=== PATIENT | female | born 1990 | race Caucasian/White ===

== ENCOUNTER 2018-01-18 14:07 | Inpatient (IN) | payer MEDICAID, OTHER ==
[~2018-01-18] VITALS: Ht 165.1 cm; Wt 44.5 kg
[~2018-01-18 14:07] MED LIST: CLIN-5 PO; DOL10T PO
[2018-01-18] MEDS ORDERED: aspirin 81mg tab.chew PO ONE (14:35)
[2018-01-18] MEDS ORDERED: normal saline 1000ML IV soln IVB ONE (14:35)
[2018-01-18] MEDS ORDERED: LORazepam 2 mg/ml vial IV ONE (14:45)
[2018-01-18] MEDS ORDERED: ondansetron/PF 4mg/2ml inj IV ONE (14:45)
[2018-01-18] MEDS ORDERED: morphine 4 MG/ML inj SYRINge IV ONE (14:45)
[2018-01-18 16:47] LABS: BASOPHILS % (AUTO) 0.2 % (0-1); EOSINOPHILS % (AUTO) 0.1 % (0-6); HEMATOCRIT 35.1 % (35.0-45.0); HEMOGLOBIN 12.2 g/dl (12.0-16.0); LYMPHOCYTES # (AUTO) 1.4 X10'3 (1.1-4.8); MEAN CORPUSCULAR HEMOGLOBIN 29.3 PG (27.0-31.0); MEAN CORPUSCULAR HGB CONC 34.7 % (33.0-36.5); MEAN CORPUSCULAR VOLUME 84.3 FL (78-98); MEAN PLATELET VOLUME 6.7 FL (7.4-10.4); MONOCYTES # (AUTO) 0.9 X10'3 (0-0.9); MONOCYTES % (AUTO) 7.5 % (2-12); NEUTROPHILS # (AUTO) 9.4 X10'3 (1.8-7.7); NEUTROPHILS % (AUTO) 80.2 % (42-75); PLATELET COUNT 412 X10'3 (140-440); RED BLOOD COUNT 4.16 X10'6 (4.20-5.60); RED CELL DISTRIBUTION WIDTH 15.2 % (11.5-14.5); WHITE BLOOD COUNT 11.7 X10'3 (4.5-11.0)
[2018-01-18 16:58] LABS: INR 1.1 INR; PARTIAL THROMBOPLASTIN TIME 27 SECONDS (22-32); PROTHROMBIN TIME 11.5 SECONDS (9.0-12.0)
[2018-01-18 17:12] LABS: ALANINE AMINOTRANSFERASE 17 U/L (12-78); ALBUMIN 2.9 G/DL (3.4-5.0); ALBUMIN/GLOBULIN RATIO 0.7 (1.1-1.5); ALKALINE PHOSPHATASE 101 IU/L (46-116); ANION GAP 8 (8-16); ASPARTATE AMINO TRANSFERASE 12 U/L (10-37); BILIRUBIN,TOTAL 0.3 MG/DL (0.1-1.0); BLOOD UREA NITROGEN 14 MG/DL (7-18); BUN/CREATININE RATIO 18.4 (6.6-38.0); CALCIUM 7.5 MG/DL (8.5-10.1); CHLORIDE 106 MMOL/L (99-107); CREATININE 0.76 MG/DL (0.40-0.90); GLUCOSE 106 MG/DL (70-104); POTASSIUM 4.3 MMOL/L (3.5-5.1); SODIUM 139 MMOL/L (135-145); TOTAL CARBON DIOXIDE 24.6 MMOL/L (24-32); TOTAL PROTEIN 7.2 G/DL (6.4-8.2); eGFR > 90 ML/MIN
[2018-01-18] MEDS ORDERED: ketorolac tromethamine 15mg/ml inj. IV ONE (19:25)
[2018-01-18] MEDS ORDERED: mag hydrox/Alum hydrox/simeth 30ml oral suspension PO PRN (19:25)
[2018-01-18] MEDS ORDERED: magnesium hydroxide 30ml (MOM) UD suspension PO PRN (19:25)
[2018-01-18] MEDS ORDERED: acetaminophen 325mg tablet PO PRN ×2 (19:25)
[2018-01-18] MEDS ORDERED: ondansetron/PF 4mg/2ml inj IV PRN (19:25)
[2018-01-18 19:34] LABS: CLARITY,URINE Clear (Clear); COLOR,URINE Yellow (Yellow); GLUCOSE, URINE Negative (Neg); KETONES,URINE Negative (Neg); LEUKOCYTE ESTERASE ,URINE Negative (Neg); NITRITES, URINE Negative (Neg); OCCULT BLOOD,URINE Small (Neg); PROTEIN,URINE Negative (Neg); UROBILINOGEN,URINE 0.2 E.U/dL (0.2-1.0)
[2018-01-18 19:35] LABS: URINE HCG NEGATIVE (NEG)
[2018-01-18 19:41] LABS: UA COLLECTION TYPE CLN CATCH MIDSTREAM
[2018-01-18 19:50] LABS: BACTERIA,URINE NONE SEEN /HPF (Neg); RBC,URINE 0-2 /HPF (0-2); SQUAMOUS EPITHELIAL CELL,UR MODERATE /LPF (FEW); WBC,URINE NONE SEEN /HPF (0-4)
[2018-01-18] MEDS: HYDROcodone/acetaminophen 10/325mg tab PO PRN (19:53)
[2018-01-18] MEDS: vancomycin/NS 1 GM ADD-VANTAGE 250 ML IV SCH (20:00)
[2018-01-18] MEDS: normal saline 1000ml 1,000 ML IV SCH (20:46)
[2018-01-18] MEDS ORDERED: temazepam 15mg capsule PO PRN (21:00)
[2018-01-18 21:40] VITALS: BP 101/49
[2018-01-19] VITALS (21 sets, daily range): BP systolic 88–153; BP diastolic 44–90
[2018-01-19] MEDS: HYDROcodone/acetaminophen 10/325mg tab PO PRN ×5 (00:06→21:34)
[2018-01-19] MEDS: normal saline 1000ml 1,000 ML IV SCH ×2 (01:43→13:39)
[2018-01-19] MEDS: vancomycin/NS 1 GM ADD-VANTAGE 250 ML IV SCH ×2 (07:46→20:18)
[2018-01-19] MEDS ORDERED: ringers solution, lacted 1,000 ML IV SCH (08:41)
[2018-01-19] MEDS ORDERED: ondansetron/PF 4mg/2ml inj IV PRN (08:45)
[2018-01-19] MEDS ORDERED: meperidine/PF 50mg/ml syringe IV PRN ×2 (08:45)
[2018-01-19] MEDS ORDERED: morphine 2 MG/ML inj. syringe IV PRN ×2 (08:45)
[2018-01-19] MEDS ORDERED: proCHLORperazine 10 MG/2 ml inj IV PRN (08:45)
[2018-01-19] MEDS ORDERED: sevoflurane 250ml liquid IH ONE (09:21)
[2018-01-19] MEDS ORDERED: fentaNYL/PF 50MCG/1 ML 2ML syringe ONE (09:23)
[2018-01-19] MEDS ORDERED: midazolam 2 mg/2 ml injection ONE (09:26)
[2018-01-19] MEDS ORDERED: LIDOcaine 2% (20mg/ml) 5ml vial ONE (09:26)
[2018-01-19] MEDS ORDERED: propofol inj 20 ML IV ONE (09:26)
[2018-01-19] MEDS ORDERED: BUPIVAcaine/PF 2.5 mg/ml (0.25%) 30ml vial ONE (09:38)
[2018-01-19] MEDS ORDERED: LIDOcaine 1% 30ml vial 30 ML ONE (09:38)
[2018-01-19] MEDS ORDERED: HYDROcodone/acetaminophen 5mg/325mg tablet PO PRN (10:00)
[2018-01-19] MEDS: meperidine/PF 50mg/ml syringe IV PRN ×2 (10:25→10:42)
[2018-01-19 14:07] LABS: BASOPHILS % (AUTO) 0.1 % (0-1); EOSINOPHILS # (AUTO) 0.1 X10'3 (0-0.9); EOSINOPHILS % (AUTO) 1.5 % (0-6); HEMOGLOBIN 10.4 g/dl (12.0-16.0); LYMPHOCYTES # (AUTO) 2.1 X10'3 (1.1-4.8); LYMPHOCYTES % (AUTO) 23.2 % (21-51); MEAN CORPUSCULAR HEMOGLOBIN 29.2 PG (27.0-31.0); MEAN CORPUSCULAR HGB CONC 33.5 % (33.0-36.5); MEAN CORPUSCULAR VOLUME 87.2 FL (78-98); MEAN PLATELET VOLUME 6.9 FL (7.4-10.4); MONOCYTES # (AUTO) 0.6 X10'3 (0-0.9); MONOCYTES % (AUTO) 7.1 % (2-12); NEUTROPHILS # (AUTO) 6.1 X10'3 (1.8-7.7); NEUTROPHILS % (AUTO) 68.1 % (42-75); PLATELET COUNT 344 X10'3 (140-440); RED BLOOD COUNT 3.56 X10'6 (4.20-5.60); RED CELL DISTRIBUTION WIDTH 14.9 % (11.5-14.5); WHITE BLOOD COUNT 8.9 X10'3 (4.5-11.0)
[2018-01-19 14:17] LABS: ALBUMIN 2.3 G/DL (3.4-5.0); ANION GAP 6 (8-16); BLOOD UREA NITROGEN 6 MG/DL (7-18); CALCIUM 7.9 MG/DL (8.5-10.1); CHLORIDE 108 MMOL/L (99-107); CREATININE 0.46 MG/DL (0.40-0.90); GLUCOSE 80 MG/DL (70-104); POTASSIUM 3.9 MMOL/L (3.5-5.1); SODIUM 141 MMOL/L (135-145); TOTAL CARBON DIOXIDE 26.9 MMOL/L (24-32); eGFR > 90 ML/MIN
[2018-01-19] MEDS: ketorolac tromethamine 15mg/ml inj. IV PRN ×2 (15:33→21:35)
[2018-01-19] MEDS ORDERED: NO HOME MEDS (18:15)
[2018-01-19] MEDS: heparin, porcine 5000 units/ml vial SQ SCH (20:00)
[2018-01-20] VITALS: BP 84/46
[2018-01-20] MEDS: normal saline 1000ml 1,000 ML IV SCH ×2 (00:08→12:09)
[2018-01-20] MEDS: HYDROcodone/acetaminophen 10/325mg tab PO PRN ×5 (01:59→23:01)
[2018-01-20] MEDS: ketorolac tromethamine 15mg/ml inj. IV PRN ×3 (04:15→19:56)
[2018-01-20] MEDS ORDERED: VANCOMYCIN LEVEL IV NR (07:30)
[2018-01-20 07:31] VITALS: BP 92/50
[2018-01-20] MEDS: heparin, porcine 5000 units/ml vial SQ SCH ×2 (08:00→20:00)
[2018-01-20] MEDS: vancomycin/NS 1 GM ADD-VANTAGE 250 ML IV SCH (08:20)
[2018-01-20 08:39] LABS: ALBUMIN 2.2 G/DL (3.4-5.0); ANION GAP 10 (8-16); BLOOD UREA NITROGEN 8 MG/DL (7-18); BUN/CREATININE RATIO 17.4 (6.6-38.0); CALCIUM 8.1 MG/DL (8.5-10.1); CHLORIDE 107 MMOL/L (99-107); CREATININE 0.46 MG/DL (0.40-0.90); GLUCOSE 104 MG/DL (70-104); POTASSIUM 3.6 MMOL/L (3.5-5.1); SODIUM 143 MMOL/L (135-145); TOTAL CARBON DIOXIDE 26.4 MMOL/L (24-32); VANCOMYCIN,TROUGH 3.9 UG/ML (6.0-14.0); eGFR > 90 ML/MIN
[2018-01-20 08:46] LABS: BASOPHILS # (AUTO) 0.1 X10'3 (0-0.2); BASOPHILS % (AUTO) 0.9 % (0-1); EOSINOPHILS # (AUTO) 0.1 X10'3 (0-0.9); EOSINOPHILS % (AUTO) 2.4 % (0-6); HEMATOCRIT 31.8 % (35.0-45.0); HEMOGLOBIN 10.9 g/dl (12.0-16.0); LYMPHOCYTES # (AUTO) 1.7 X10'3 (1.1-4.8); LYMPHOCYTES % (AUTO) 29.6 % (21-51); MEAN CORPUSCULAR HEMOGLOBIN 29.6 PG (27.0-31.0); MEAN CORPUSCULAR HGB CONC 34.3 % (33.0-36.5); MEAN CORPUSCULAR VOLUME 86.4 FL (78-98); MEAN PLATELET VOLUME 7.5 FL (7.4-10.4); MONOCYTES # (AUTO) 0.4 X10'3 (0-0.9); MONOCYTES % (AUTO) 7.3 % (2-12); NEUTROPHILS # (AUTO) 3.5 X10'3 (1.8-7.7); NEUTROPHILS % (AUTO) 59.8 % (42-75); PLATELET COUNT 355 X10'3 (140-440); RED BLOOD COUNT 3.68 X10'6 (4.20-5.60); RED CELL DISTRIBUTION WIDTH 14.4 % (11.5-14.5); WHITE BLOOD COUNT 5.9 X10'3 (4.5-11.0)
[2018-01-20 12:00] VITALS: BP 95/56
[2018-01-20] MEDS: vancomycin inj 1,250 MG in normal saline 250ml IV soln 250 ML IV SCH (15:43)
[2018-01-20] MEDS: lactobacillus rhamnosus 10,000 MMU CELLS/CAPSULE PO SCH (19:58)
[2018-01-20 20:00] VITALS: BP 94/58
[2018-01-20] MEDS: piperacillin/tazo 3.375gm/50ml 50 ML IV SCH (20:07)
[2018-01-21] VITALS: BP 104/60
[2018-01-21] MEDS: piperacillin/tazo 3.375gm/50ml 50 ML IV SCH ×4 (00:44→23:24)
[2018-01-21] MEDS: vancomycin inj 1,250 MG in normal saline 250ml IV soln 250 ML IV SCH ×3 (01:31→17:20)
[2018-01-21] MEDS: normal saline 1000ml 1,000 ML IV SCH ×2 (01:31→07:16)
[2018-01-21] MEDS: ketorolac tromethamine 15mg/ml inj. IV PRN ×4 (04:10→23:22)
[2018-01-21 05:11] LABS: BASOPHILS # (AUTO) 0.1 X10'3 (0-0.2); BASOPHILS % (AUTO) 1.1 % (0-1); EOSINOPHILS # (AUTO) 0.2 X10'3 (0-0.9); EOSINOPHILS % (AUTO) 3.2 % (0-6); HEMOGLOBIN 11.2 g/dl (12.0-16.0); LYMPHOCYTES # (AUTO) 2.4 X10'3 (1.1-4.8); LYMPHOCYTES % (AUTO) 32.5 % (21-51); MEAN CORPUSCULAR HEMOGLOBIN 29.1 PG (27.0-31.0); MEAN CORPUSCULAR VOLUME 85.4 FL (78-98); MEAN PLATELET VOLUME 7.4 FL (7.4-10.4); MONOCYTES # (AUTO) 0.5 X10'3 (0-0.9); MONOCYTES % (AUTO) 6.3 % (2-12); NEUTROPHILS # (AUTO) 4.2 X10'3 (1.8-7.7); NEUTROPHILS % (AUTO) 56.9 % (42-75); PLATELET COUNT 389 X10'3 (140-440); RED BLOOD COUNT 3.86 X10'6 (4.20-5.60); RED CELL DISTRIBUTION WIDTH 14.8 % (11.5-14.5); WHITE BLOOD COUNT 7.3 X10'3 (4.5-11.0)
[2018-01-21 05:34] LABS: ALBUMIN 2.4 G/DL (3.4-5.0); ANION GAP 10 (8-16); BLOOD UREA NITROGEN 16 MG/DL (7-18); BUN/CREATININE RATIO 23.5 (6.6-38.0); CHLORIDE 108 MMOL/L (99-107); CREATININE 0.68 MG/DL (0.40-0.90); GLUCOSE 93 MG/DL (70-104); POTASSIUM 3.8 MMOL/L (3.5-5.1); SODIUM 144 MMOL/L (135-145); TOTAL CARBON DIOXIDE 26.5 MMOL/L (24-32); eGFR > 90 ML/MIN
[2018-01-21] MEDS: heparin, porcine 5000 units/ml vial SQ SCH ×2 (07:20→19:47)
[2018-01-21] MEDS: pantoprazole 40mg Tablet.DR PO SCH (07:20)
[2018-01-21] MEDS: lactobacillus rhamnosus 10,000 MMU CELLS/CAPSULE PO SCH ×2 (07:20→19:47)
[2018-01-21] MEDS: HYDROcodone/acetaminophen 10/325mg tab PO PRN ×3 (07:26→19:47)
[2018-01-21 07:35] VITALS: BP 102/58
[2018-01-21 11:40] VITALS: BP 95/51
[2018-01-21] MEDS ORDERED: VANCOMYCIN LEVEL IV NR (15:30)
[2018-01-21 20:08] VITALS: BP 101/67
[2018-01-21] MEDS: benzocaine (Anbesol) 12ml bottle MM PRN (20:19)
[2018-01-22] VITALS: BP 96/59
[2018-01-22] MEDS: vancomycin inj 1,250 MG in normal saline 250ml IV soln 250 ML IV SCH ×3 (00:51→17:22)
[2018-01-22] MEDS: HYDROcodone/acetaminophen 10/325mg tab PO PRN ×4 (00:52→21:24)
[2018-01-22] MEDS: benzocaine (Anbesol) 12ml bottle MM PRN ×2 (03:12→07:35)
[2018-01-22 05:29] LABS: BASOPHILS # (AUTO) 0.1 X10'3 (0-0.2); EOSINOPHILS # (AUTO) 0.3 X10'3 (0-0.9); EOSINOPHILS % (AUTO) 3.5 % (0-6); HEMATOCRIT 31.6 % (35.0-45.0); HEMOGLOBIN 10.5 g/dl (12.0-16.0); LYMPHOCYTES # (AUTO) 2.5 X10'3 (1.1-4.8); MEAN CORPUSCULAR HEMOGLOBIN 28.8 PG (27.0-31.0); MEAN CORPUSCULAR HGB CONC 33.1 % (33.0-36.5); MEAN CORPUSCULAR VOLUME 86.8 FL (78-98); MEAN PLATELET VOLUME 7.5 FL (7.4-10.4); MONOCYTES # (AUTO) 0.5 X10'3 (0-0.9); NEUTROPHILS # (AUTO) 5.1 X10'3 (1.8-7.7); NEUTROPHILS % (AUTO) 60.5 % (42-75); PLATELET COUNT 384 X10'3 (140-440); RED BLOOD COUNT 3.63 X10'6 (4.20-5.60); RED CELL DISTRIBUTION WIDTH 14.1 % (11.5-14.5); WHITE BLOOD COUNT 8.5 X10'3 (4.5-11.0)
[2018-01-22 05:39] LABS: ALBUMIN 2.3 G/DL (3.4-5.0); ANION GAP 8 (8-16); BLOOD UREA NITROGEN 16 MG/DL (7-18); BUN/CREATININE RATIO 25.8 (6.6-38.0); CALCIUM 8.3 MG/DL (8.5-10.1); CHLORIDE 110 MMOL/L (99-107); CREATININE 0.62 MG/DL (0.40-0.90); GLUCOSE 97 MG/DL (70-104); POTASSIUM 3.5 MMOL/L (3.5-5.1); SODIUM 147 MMOL/L (135-145); TOTAL CARBON DIOXIDE 29.3 MMOL/L (24-32); eGFR > 90 ML/MIN
[2018-01-22] MEDS ORDERED: pantoprazole 40 MG vial IV ONE (06:10)
[2018-01-22 07:08] VITALS: BP 96/57
[2018-01-22] MEDS: heparin, porcine 5000 units/ml vial SQ SCH ×2 (07:23→20:00)
[2018-01-22] MEDS: lactobacillus rhamnosus 10,000 MMU CELLS/CAPSULE PO SCH ×2 (07:25→21:22)
[2018-01-22] MEDS: piperacillin/tazo 3.375gm/50ml 50 ML IV SCH ×3 (07:26→23:56)
[2018-01-22] MEDS: ketorolac tromethamine 15mg/ml inj. IV PRN ×3 (07:26→23:56)
[2018-01-22] MEDS: pantoprazole 40mg Tablet.DR PO SCH (07:26)
[2018-01-22 12:00] VITALS: BP 100/58
[2018-01-22 19:00] VITALS: BP 98/68
[2018-01-23] VITALS: BP 109/63
[2018-01-23] MEDS: vancomycin inj 1,250 MG in normal saline 250ml IV soln 250 ML IV SCH ×3 (01:15→18:00)
[2018-01-23] MEDS: HYDROcodone/acetaminophen 10/325mg tab PO PRN ×4 (04:18→20:11)
[2018-01-23 05:20] LABS: BASOPHILS % (AUTO) 0.3 % (0-1); EOSINOPHILS # (AUTO) 0.3 X10'3 (0-0.9); EOSINOPHILS % (AUTO) 3.5 % (0-6); HEMATOCRIT 30.4 % (35.0-45.0); HEMOGLOBIN 10.2 g/dl (12.0-16.0); LYMPHOCYTES # (AUTO) 2.4 X10'3 (1.1-4.8); LYMPHOCYTES % (AUTO) 29.1 % (21-51); MEAN CORPUSCULAR HGB CONC 33.4 % (33.0-36.5); MEAN CORPUSCULAR VOLUME 86.7 FL (78-98); MEAN PLATELET VOLUME 6.8 FL (7.4-10.4); MONOCYTES # (AUTO) 0.5 X10'3 (0-0.9); MONOCYTES % (AUTO) 6.4 % (2-12); NEUTROPHILS # (AUTO) 5.1 X10'3 (1.8-7.7); NEUTROPHILS % (AUTO) 60.7 % (42-75); PLATELET COUNT 389 X10'3 (140-440); RED BLOOD COUNT 3.51 X10'6 (4.20-5.60); WHITE BLOOD COUNT 8.4 X10'3 (4.5-11.0)
[2018-01-23 05:44] LABS: ALBUMIN 2.3 G/DL (3.4-5.0); ANION GAP 9 (8-16); BLOOD UREA NITROGEN 14 MG/DL (7-18); CALCIUM 7.9 MG/DL (8.5-10.1); CHLORIDE 110 MMOL/L (99-107); CREATININE 0.61 MG/DL (0.40-0.90); GLUCOSE 101 MG/DL (70-104); POTASSIUM 3.3 MMOL/L (3.5-5.1); SODIUM 147 MMOL/L (135-145); TOTAL CARBON DIOXIDE 28.4 MMOL/L (24-32); eGFR > 90 ML/MIN
[2018-01-23 06:00] VITALS: BP 103/63
[2018-01-23] MEDS: heparin, porcine 5000 units/ml vial SQ SCH ×2 (08:00→19:33)
[2018-01-23] MEDS: piperacillin/tazo 3.375gm/50ml 50 ML IV SCH ×2 (09:01→17:52)
[2018-01-23] MEDS: lactobacillus rhamnosus 10,000 MMU CELLS/CAPSULE PO SCH ×2 (09:03→20:06)
[2018-01-23] MEDS: pantoprazole 40mg Tablet.DR PO SCH (09:03)
[2018-01-23] MEDS ORDERED: potassium Cl 20 mEq SR tablet PO PRN (10:10)
[2018-01-23] MEDS ORDERED: potassium Cl 40MEQ/NS 500ml 500 ML IV PRN ×2 (10:10)
[2018-01-23] MEDS: potassium Cl 20 mEq SR tablet PO PRN ×2 (10:59→15:40)
[2018-01-23] MEDS: ketorolac tromethamine 15mg/ml inj. IV PRN ×2 (10:59→17:47)
[2018-01-23 12:00] VITALS: BP 102/52
[2018-01-23] MEDS ORDERED: CLIN150C2 PO (17:53)
[2018-01-23] MEDS ORDERED: TRAM50TA2 PO (18:01)
[2018-01-23 20:00] VITALS: BP 100/53
[2018-01-23] MEDS: benzocaine (Anbesol) 12ml bottle MM PRN (20:40)
[2018-01-23 23:00] VITALS: BP 102/58
[2018-01-24] MEDS ORDERED: K and/or MAG REPLACEMENT MC SCH (08:00)
== END 2018-01-23 23:32 | DRG 603 ==
LOC: EEVIPCON 14:07 → ER 14:07 → ED HOLD 19:24 → SUR 3N 21:35 → OBSVTOIN 01-19 12:30 → SUR 3N 01-22 10:18
PROVIDERS: ADMIT Hospitalist; ATTEND Family Medicine
PROC: 0H98XZX Drainage of Buttock Skin, External Approach, Diagnostic (ICD-10-PCS; principal; 2018-01-19 09:21)
DX: L02.31 Cutaneous abscess of buttock (principal); F11.10 Opioid abuse, uncomplicated; Z68.1 Body mass index [BMI] 19.9 or less, adult; F15.10 Other stimulant abuse, uncomplicated; F17.210 Nicotine dependence, cigarettes, uncomplicated; Z88.8 Allergy status to other drugs, medicaments and biological substances; Z79.899 Other long term (current) drug therapy
CPT/HCPCS: 96361; 96374; 96375; 99285; Z7506; 36415; 71045; 80048; 80053; 80202; 81001; 81025; 83605; 83735; 83880; 84145; 84484; 85025; 85610; 85730; 87040; 87070; 87075; 87076; 87077; 87186; 93005; A6212; A6253; A6257; A6258; A6266; A6446; A6449; A7000; G0378; J1644; J1885; J2001; J2175; J2250; J2270; J2405; J2543; J2704; J3010; J3370; J3490; J7030; J7120

== ENCOUNTER 2018-01-28 08:40 | Day surgery (SDC) | payer OTHER ==
[~2018-01-28 08:40] MED LIST changes: -CLIN-5 PO; +CLIN150C2 PO; -DOL10T PO; +NO HOME MEDS; +TRAM50TA2 PO
[2018-01-28] MEDS ORDERED: LIDOcaine 2% 5ml jelly ONE (09:16)
== END 2018-01-28 09:58 | disposition home or self-care (01) ==
LOC: WOUND CARE 08:40
PROVIDERS: ATTEND Surgery
DX: T81.31XD Disruption of external operation (surgical) wound, not elsewhere classified, subsequent encounter (principal); L98.411 Non-pressure chronic ulcer of buttock limited to breakdown of skin; F17.210 Nicotine dependence, cigarettes, uncomplicated; F15.10 Other stimulant abuse, uncomplicated; F11.10 Opioid abuse, uncomplicated; Z79.899 Other long term (current) drug therapy; Z68.1 Body mass index [BMI] 19.9 or less, adult; Y83.8 Other surgical procedures as the cause of abnormal reaction of the patient, or of later complication, without mention of misadventure at the time of the procedure
CPT/HCPCS: 97597; A6266

== ENCOUNTER 2018-02-10 08:35 | Day surgery (SDC) | payer OTHER ==
[~2018-02-10 08:35] MED LIST changes: -CLIN150C2 PO; -TRAM50TA2 PO
[2018-02-10] MEDS ORDERED: LIDOcaine 2% 5ml jelly ONE (09:48)
== END 2018-02-10 10:23 ==
LOC: WOUND CARE 08:35
PROVIDERS: ATTEND Surgery
DX: T81.89XD Other complications of procedures, not elsewhere classified, subsequent encounter (principal); L98.411 Non-pressure chronic ulcer of buttock limited to breakdown of skin; F17.210 Nicotine dependence, cigarettes, uncomplicated; F15.10 Other stimulant abuse, uncomplicated; F11.10 Opioid abuse, uncomplicated; Z79.899 Other long term (current) drug therapy; Z68.1 Body mass index [BMI] 19.9 or less, adult; Y83.8 Other surgical procedures as the cause of abnormal reaction of the patient, or of later complication, without mention of misadventure at the time of the procedure
CPT/HCPCS: 11042; A6212; A6266

== ENCOUNTER 2018-02-19 09:30 | Day surgery (SDC) | payer OTHER ==
[2018-02-19] MEDS ORDERED: LIDOcaine 2% 5ml jelly ONE (09:35)
== END 2018-02-19 10:15 | disposition home or self-care (01) ==
LOC: WOUND CARE 09:30
PROVIDERS: ATTEND Surgery
DX: T81.89XD Other complications of procedures, not elsewhere classified, subsequent encounter (principal); L98.411 Non-pressure chronic ulcer of buttock limited to breakdown of skin; F17.210 Nicotine dependence, cigarettes, uncomplicated; F15.10 Other stimulant abuse, uncomplicated; F11.10 Opioid abuse, uncomplicated; Z79.899 Other long term (current) drug therapy; Z68.1 Body mass index [BMI] 19.9 or less, adult; Y83.8 Other surgical procedures as the cause of abnormal reaction of the patient, or of later complication, without mention of misadventure at the time of the procedure
CPT/HCPCS: 97597; A6212; A6266

== ENCOUNTER 2018-02-25 17:30 | Emergency (ER) | payer MEDICAID, OTHER ==
[~2018-02-25] VITALS: Ht 160 cm; Wt 47.3 kg
[2018-02-25 18:29] VITALS: BP 128/96
[2018-02-25] MEDS ORDERED: HYDR-569 PO (19:55)
== END 2018-02-25 20:31 | disposition home or self-care (01) ==
LOC: ER 17:31
DX: S06.0X9A Concussion with loss of consciousness of unspecified duration, initial encounter (principal); S00.93XA Contusion of unspecified part of head, initial encounter; S29.019A Strain of muscle and tendon of unspecified wall of thorax, initial encounter; F15.10 Other stimulant abuse, uncomplicated; W10.9XXA Fall (on) (from) unspecified stairs and steps, initial encounter; Y93.89 Activity, other specified; Y92.89 Other specified places as the place of occurrence of the external cause; Y99.8 Other external cause status
CPT/HCPCS: 70450; 72125; 72128; 99284; L0172

== ENCOUNTER 2019-04-01 01:05 | Emergency (ER) | payer MEDICAID ==
[~2019-04-01] VITALS: Ht 165.1 cm; Wt 50.9 kg
[~2019-04-01 01:05] MED LIST changes: +CEPH-571 PO; +HYDR-4383 PO
[2019-04-01] MEDS ORDERED: amoxicillin 250mg capsule PO ONE (02:15)
[2019-04-01] MEDS ORDERED: AMOX500C2 PO (02:15)
== END 2019-04-01 02:26 | disposition home or self-care (01) ==
LOC: ER 01:05
DX: H60.92 Unspecified otitis externa, left ear (principal); F15.90 Other stimulant use, unspecified, uncomplicated; F11.90 Opioid use, unspecified, uncomplicated; Z88.6 Allergy status to analgesic agent; Z88.8 Allergy status to other drugs, medicaments and biological substances; Z79.2 Long term (current) use of antibiotics; Z79.899 Other long term (current) drug therapy; Z98.890 Other specified postprocedural states
CPT/HCPCS: 99283

== ENCOUNTER 2019-08-13 22:25 | Inpatient (IN) | payer MEDICAID ==
[~2019-08-13] VITALS: Ht 165.1 cm; Wt 52.0 kg
[2019-08-13] MEDS ORDERED: normal saline 1000ML IV soln IV ONE (23:25)
[2019-08-13] MEDS ORDERED: TETanus/Pertussis (Acell)/Diphther VAC/PF (Tdap-Adult) 0.5ml syringe IM ONE (23:25)
[2019-08-13] MEDS ORDERED: LIDOcaine 1% w/EPI 1:200,000 injection 10mL vial IM ONE (23:25)
[2019-08-13] MEDS ORDERED: piperacillin/tazo 3.375gm/50ml 50 ML IV ONE (23:25)
[2019-08-14] VITALS (24 sets, daily range): BP systolic 86–116; BP diastolic 46–86
--- NOTE | 2019-08-14 00:28 | NUR ---
relieving RN for lunch, pt is difficult IV start, charge nurse at bedside to attempt IV with ultrasound
[2019-08-14] MEDS ORDERED: morphine 10mg/ml inj. IV ONE (00:40)
[2019-08-14 00:51] LABS: BASOPHILS # (AUTO) 0.1 X10'3 (0-0.2); BASOPHILS % (AUTO) 0.3 % (0-1); HEMATOCRIT 49.4 % (35.0-45.0); MEAN CORPUSCULAR HEMOGLOBIN 30.8 PG (27.0-31.0)
[2019-08-14] MEDS ORDERED: iohexol 300mg/ml 100ml inj. ONE (00:51)
[2019-08-14 00:56] LABS: EOSINOPHILS % (AUTO) 0 % (0-6); HEMOGLOBIN 17.1 g/dl (12.0-16.0); LYMPHOCYTES # (AUTO) 1.2 X10'3 (1.1-4.8); LYMPHOCYTES % (AUTO) 2.7 % (21-51); MEAN CORPUSCULAR HGB CONC 34.6 g/dL (33.0-36.5); MEAN CORPUSCULAR VOLUME 89.1 FL (78-98); MEAN PLATELET VOLUME 7.7 FL (7.4-10.4); MONOCYTES # (AUTO) 3.4 X10'3 (0-0.9); MONOCYTES % (AUTO) 7.4 % (2-12); NEUTROPHILS # (AUTO) 40.6 X10'3 (1.8-7.7); NEUTROPHILS % (AUTO) 89.6 % (42-75); PLATELET COUNT 564 X10'3 (140-440); RED BLOOD COUNT 5.54 X10'6 (4.20-5.60); RED CELL DISTRIBUTION WIDTH 12.5 % (11.5-14.5)
--- NOTE | 2019-08-14 00:59 | NUR ---
pt refusing tetanus at this time, to CT with process engineering technician
[2019-08-14 01:03] LABS: ALANINE AMINOTRANSFERASE 12 U/L (12-78); ALBUMIN 2.2 G/DL (3.4-5.0); ALBUMIN/GLOBULIN RATIO 0.6 (1.1-1.5); ALKALINE PHOSPHATASE 92 IU/L (46-116); ANION GAP 15 (8-16); ASPARTATE AMINO TRANSFERASE 26 U/L (10-37); BILIRUBIN,TOTAL 0.9 MG/DL (0.1-1.0); BLOOD UREA NITROGEN 29 MG/DL (7-18); CALCIUM 7.7 MG/DL (8.5-10.1); CHLORIDE 91 MMOL/L (99-107); CREATINE KINASE 722 U/L (26-192); CREATININE 1.53 MG/DL (0.40-0.90); GLUCOSE 152 MG/DL (70-104); MAGNESIUM 2.1 MG/DL (1.5-2.4); POTASSIUM 3.9 MMOL/L (3.5-5.1); SODIUM 126 MMOL/L (135-145); TOTAL CARBON DIOXIDE 19.9 MMOL/L (24-32); TOTAL PROTEIN 6.2 G/DL (6.4-8.2); eGFR 41 ML/MIN
[2019-08-14 01:06] LABS: WHITE BLOOD COUNT 45.4 X10'3 (4.5-11.0)
[2019-08-14 01:12] LABS: PARTIAL THROMBOPLASTIN TIME 35 SECONDS (22-32)
[2019-08-14 01:35] LABS: BANDS% (MANUAL) 7 % (0-10); LYMPHOCYTES % (MANUAL) 2 % (21-51); MONOCYTES % (MANUAL) 3 % (2-12); NEUTROPHILS % (MANUAL) 88 % (42-75); SMUDGE CELLS FEW; TOTAL CELLS COUNTED 100
[2019-08-14 01:36] LABS: PLATELET ESTIMATE INCREASED
[2019-08-14] MEDS ORDERED: vancomycin/NS 1 GM ADD-VANTAGE 250 ML X 1 DOSE IV ONE (01:40)
[2019-08-14] MEDS ORDERED: fentaNYL/PF 50MCG/1 ML 2ML syringe IV ONE ×2 (02:05→04:50)
[2019-08-14] MEDS ORDERED: LIDOcaine 1% w/EPI 1:200,000 injection 10mL vial IM ONE (02:20)
[2019-08-14] MEDS ORDERED: LIDOcaine 1.5% w/epinephrine 1:200,000 5ml ampul IJ ONE (02:45)
[2019-08-14] MEDS ORDERED: normal saline 1000ML IV soln IVB ONE (03:15)
[2019-08-14] MEDS ORDERED: LIDOcaine 1% W/epiNEPHrine 1:100,000 20ml vial SQ ONE (03:15)
[2019-08-14] MEDS: normal saline 1000ml 1,000 ML IV SCH ×3 (04:29→20:21)
[2019-08-14] MEDS ORDERED: morphine 2 MG/ML inj. syringe IV PRN (04:30)
[2019-08-14] MEDS ORDERED: acetaminophen 325mg tablet PO PRN (04:30)
[2019-08-14] MEDS ORDERED: acetaminophen 650mg rectal suppository RC PRN (04:30)
[2019-08-14] MEDS: K, MAG and/or Phos replacement - Verify level? MC SCH ×2 (04:30→08:00)
[2019-08-14] MEDS ORDERED: ondansetron/PF 4mg/2ml inj IV PRN (04:30)
[2019-08-14] MEDS ORDERED: morphine 4 MG/ML inj SYRINge IV PRN (04:30)
[2019-08-14] MEDS ORDERED: potassium Cl 20 mEq SR tablet PO PRN ×2 (04:30)
[2019-08-14 04:57] LABS: URINE HCG NEGATIVE (NEG)
[2019-08-14 04:59] LABS: CLARITY,URINE CLEAR (Clear); COLOR,URINE YELLOW (Yellow); GLUCOSE, URINE NEGATIVE (Neg); KETONES,URINE NEGATIVE (Neg); LEUKOCYTE ESTERASE ,URINE NEGATIVE (Neg); NITRITES, URINE NEGATIVE (Neg); OCCULT BLOOD,URINE TRACE-INTACT (Neg); PH,URINE 5.5 (4.8-8.0); PROTEIN,URINE NEGATIVE (Neg); UA COLLECTION TYPE CLN CATCH MIDSTREAM; UROBILINOGEN,URINE 0.2 E.U/dL (0.2-1.0)
[2019-08-14 05:03] LABS: BACTERIA,URINE FEW /HPF (Neg); RBC,URINE 0-2 /HPF (0-2); SQUAMOUS EPITHELIAL CELL,UR MANY /LPF (FEW); WBC,URINE 0-4 /HPF (0-4)
[2019-08-14 05:04] LABS: MUCUS STRANDS NONE SEEN /LPF (Neg)
[2019-08-14 05:55] LABS: ABG BASE EXCESS -6.8 mmol/L (-2.0-3.0); ABG HCO3 16.3 mmol/L (22.0-26.0); ABG OXYGEN SATURATION 96.8 % (95-98); ABG PCO2 (T) 26.2 mmHg (35.0-45.0); ABG PH (T) 7.409 (7.350-7.450); ABG PO2 (T) 90.1 mmHg (83-108); ALLEN'S TEST Positive; FCOHb 0.7 % (0.5-1.5); FMetHb 0.3 % (0.3-1.12); FO2Hb 95.8 % (94-100); PATIENT TEMPERATURE 36.5; RESPIRATORY RATE (OBSERVED) 16 b/min; TOTAL HEMOGLOBIN 13.9 G/dl (12.0-16.0)
[2019-08-14] MEDS ORDERED: ceFAZolin 1000mg inj ONE (06:51)
[2019-08-14] MEDS ORDERED: sevoflurane 250ml liquid IH ONE (07:49)
[2019-08-14] MEDS ORDERED: midazolam 2 mg/2 ml injection ONE (07:52)
[2019-08-14] MEDS ORDERED: fentaNYL /PF 50mcg/ml 5ml ampule ONE (07:53)
[2019-08-14] MEDS: CLINDAMYCIN/D5W 900mg/50ml 50 ML IV SCH ×3 (08:00→23:50)
[2019-08-14] MEDS: pantoprazole 40 MG vial IV SCH (08:00)
[2019-08-14] MEDS: lactobacillus rhamnosus 10,000 MMU CELLS/CAPSULE PO SCH ×2 (08:00→20:14)
[2019-08-14] MEDS ORDERED: ketamine 50mg/5ml syringe ONE (08:07)
[2019-08-14] MEDS ORDERED: gentamicin inj 80 MG in normal saline 100ml IV soln 98 ML IV ONE (08:15)
[2019-08-14] MEDS ORDERED: [UNRECOGNIZED DRUG - OTHER] IV ONE (08:15)
[2019-08-14] MEDS ORDERED: NORMAL SALINE IV ONE (08:15)
[2019-08-14] MEDS ORDERED: propofol inj 20 ML IV ONE (08:25)
[2019-08-14] MEDS ORDERED: LIDOcaine 2% (20mg/ml) 5ml vial ONE (08:25)
[2019-08-14] MEDS ORDERED: rocuronium 10mg/ml inj IV ONE (08:25)
[2019-08-14] MEDS ORDERED: morphine 10mg/ml inj. ONE (08:43)
[2019-08-14] MEDS ORDERED: NORepinephrine 8mg/ 250ml NS 250 ML IV ONE (09:17)
--- NOTE | 2019-08-14 09:25 | NUR ---
Received from OR via ICU BED TO ROOM 2014, accompanied by Anesthesiologist DR. BETTS and report given by Anesthesiolgist. PT ARRIVED BEING BAGGED BY DR. BETTS, RT PRESENT VENT SETTINGS PER DR. BETTS, PLACED ON VENT. IV SEDATION BEGAN VIA CVL RT NECK. PT CALM AND COMFORTABLE AT THIS TIME. PT IN [place] FOR LOW BP. LEVO ON STANDBY IF NEEDED PER DR. BETTS REQUEST. 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 PT STEVENS WITH STIMULI. DRESSING RT BUTT CHEEK CDI. LABS AND CXR ORDERED. LABS DRAWN VIA CVL AND TAKEN TO LAB. CXR DONE, AWAITING REVIEW PER .
[2019-08-14] MEDS ORDERED: phenylephrine 10mg/ml inj. ONE (09:40)
[2019-08-14] MEDS ORDERED: glycopyrrolate 0.2mg/ml inj ONE (09:40)
[2019-08-14] MEDS ORDERED: neostigmine methylsulfate 1 MG/ML 10ml vial ONE (09:40)
[2019-08-14] MEDS: midazolam 100mg in NS 100ml 100 ML IV PRN (09:48)
[2019-08-14] MEDS: FENTANYL-0.9 % NACL/PF 100 ML IV PRN (09:49)
--- NOTE | 2019-08-14 10:10 | NUR ---
Report called to receiving nurse BARBI DELUCA. RECOVERED IN CICU ROOM 2014. NO Belongings PRESENT UPON ARRIVAL TO CICU. Special Issues communicated to receiving nurse. LEVO STARTED DUE TO LOW BP AFTER HOB AT 30 DEGREES PER PROTOCOL FOR VAP PREVENTION. SEDATION APPEARS ADEQUATE. ALL CRITERIA FOR TRANSFER HAS BEEN ACHIEVED. VSS. BED LOW, CALL LIGHT IN PLACE. RN PRESENT TO ACCEPT CARE. PATIENT RESTING COMFORTABLY IN BED. DRESSINGS CDI.
[2019-08-14 10:14] LABS: BASOPHILS # (AUTO) 0.1 X10'3 (0-0.2); BASOPHILS % (AUTO) 0.2 % (0-1); EOSINOPHILS % (AUTO) 0 % (0-6); HEMATOCRIT 33.7 % (35.0-45.0); HEMOGLOBIN 11.6 g/dl (12.0-16.0); LYMPHOCYTES # (AUTO) 0.8 X10'3 (1.1-4.8); LYMPHOCYTES % (AUTO) 2.6 % (21-51); MEAN CORPUSCULAR HEMOGLOBIN 30.7 PG (27.0-31.0); MEAN CORPUSCULAR HGB CONC 34.3 g/dL (33.0-36.5); MEAN CORPUSCULAR VOLUME 89.4 FL (78-98); MEAN PLATELET VOLUME 7.5 FL (7.4-10.4); MONOCYTES # (AUTO) 2.1 X10'3 (0-0.9); NEUTROPHILS # (AUTO) 27.3 X10'3 (1.8-7.7); NEUTROPHILS % (AUTO) 90.2 % (42-75); PLATELET COUNT 342 X10'3 (140-440); RED BLOOD COUNT 3.77 X10'6 (4.20-5.60); RED CELL DISTRIBUTION WIDTH 12.5 % (11.5-14.5)
[2019-08-14 10:25] LABS: PARTIAL THROMBOPLASTIN TIME 53 SECONDS (22-32)
[2019-08-14 10:31] LABS: ALBUMIN/GLOBULIN RATIO 0.5 (1.1-1.5); ALKALINE PHOSPHATASE 55 IU/L (46-116); ANION GAP 10 (8-16); ASPARTATE AMINO TRANSFERASE 24 U/L (10-37); BILIRUBIN,TOTAL 0.5 MG/DL (0.1-1.0); BLOOD UREA NITROGEN 18 MG/DL (7-18); BUN/CREATININE RATIO 26.1 (6.6-38.0); CHLORIDE 105 MMOL/L (99-107); CREATININE 0.69 MG/DL (0.40-0.90); GLUCOSE 121 MG/DL (70-104); MAGNESIUM 1.4 MG/DL (1.5-2.4); PHOSPHORUS 2.8 MG/DL (2.3-4.5); POTASSIUM 4.6 MMOL/L (3.5-5.1); SODIUM 132 MMOL/L (135-145); TOTAL CARBON DIOXIDE 17.4 MMOL/L (24-32); TOTAL PROTEIN 3.1 G/DL (6.4-8.2); eGFR > 90 ML/MIN
[2019-08-14 10:39] LABS: CALCIUM 5.1 MG/DL (8.5-10.1)
[2019-08-14 10:42] LABS: WHITE BLOOD COUNT 30.2 X10'3 (4.5-11.0)
[2019-08-14 10:43] LABS: ALANINE AMINOTRANSFERASE 9 U/L (12-78)
[2019-08-14 10:45] LABS: PLATELET ESTIMATE NORMAL; TOTAL CELLS COUNTED 100
[2019-08-14 10:46] LABS: BURR CELLS 1+; ROULEAUX 1+; TOXIC GRANULATION 2+; TOXIC VACUOLATION 1+
[2019-08-14 10:51] LABS: ABG BASE EXCESS -8.3 mmol/L (-2.0-3.0); ABG HCO3 16.1 mmol/L (22.0-26.0); ABG OXYGEN SATURATION 98.6 % (95-98); ABG PCO2 (T) 29.8 mmHg (35.0-45.0); ABG PH (T) 7.349 (7.350-7.450); ABG PO2 (T) 144.9 mmHg (83-108); ALLEN'S TEST Positive; FCOHb 0.3 % (0.5-1.5); FMetHb 0.2 % (0.3-1.12); FO2Hb 98.1 % (94-100); MINUTE VOLUME 9 L/min; PATIENT TEMPERATURE 36.7; RESPIRATORY RATE (OBSERVED) 10 b/min; TOTAL HEMOGLOBIN 13.2 G/dl (12.0-16.0)
--- NOTE | 2019-08-14 11:22 | NUR ---
Received pt at 1000am. Intubated, on sedation.
[2019-08-14] MEDS: piperacillin/tazo 3.375gm/50ml 50 ML IV SCH ×2 (11:40→17:04)
[2019-08-14] MEDS ORDERED: magnesium 4gm in 100ml NS 100 ML IV PRN (11:50)
[2019-08-14] MEDS ORDERED: potassium CL 10mEq/100ml bag 100 ML IV PRN (11:50)
[2019-08-14] MEDS ORDERED: magnesium 2GM in 50ml NS 50 ML IV PRN (11:50)
[2019-08-14] MEDS ORDERED: potassium Cl 20mEq/100mL bag 100 ML IV PRN (11:50)
[2019-08-14] MEDS: acetaminophen 325mg tablet PO PRN (13:54)
[2019-08-14] MEDS ORDERED: normal saline 500ml IV soln 1,000 ML IV SCH (17:45)
[2019-08-14] MEDS ORDERED: calcium chloride inj. 1,000 MG in normal saline 100ml IV soln 90 ML IV ONE ×2 (18:30→20:00)
--- NOTE | 2019-08-14 18:39 | NUR ---
Problems reprioritized. Patient report given Andre, questions answered & plan of care reviewed with .
--- NOTE | 2019-08-14 18:40 | NUR ---
Patient in room CICU 2014. I have received report from Clarisse DELUCA and had the opportunity to ask questions and assume patient care.
[2019-08-14] MEDS ORDERED: albumin (Human) 5% 250ml 250 ML IV ONE ×2 (20:00)
--- NOTE | 2019-08-14 20:00 | NUR ---
Osmin Vaughn was present. we discussed pt and Osmin gave orders for 500ml of 5% albumin at this time.
[2019-08-14 22:35] LABS: CALCIUM 8.9 MG/DL (8.5-10.1); POTASSIUM 4.8 MMOL/L (3.5-5.1)
[2019-08-14 23:08] LABS: BASOPHILS # (AUTO) 0.1 X10'3 (0-0.2); BASOPHILS % (AUTO) 0.1 % (0-1); EOSINOPHILS % (AUTO) 0.2 % (0-6); NEUTROPHILS % (AUTO) 86.6 % (42-75)
[2019-08-14 23:10] LABS: EOSINOPHILS # (AUTO) 0.2 X10'3 (0-0.9); HEMATOCRIT 46.6 % (35.0-45.0); HEMOGLOBIN 15.5 g/dl (12.0-16.0); LYMPHOCYTES % (AUTO) 4.7 % (21-51); MEAN CORPUSCULAR HEMOGLOBIN 30.6 PG (27.0-31.0); MEAN CORPUSCULAR HGB CONC 33.3 g/dL (33.0-36.5); MEAN PLATELET VOLUME 7.4 FL (7.4-10.4); MONOCYTES # (AUTO) 5.4 X10'3 (0-0.9); MONOCYTES % (AUTO) 8.4 % (2-12); NEUTROPHILS # (AUTO) 55.8 X10'3 (1.8-7.7); PLATELET COUNT 227 X10'3 (140-440); RED BLOOD COUNT 5.06 X10'6 (4.20-5.60); RED CELL DISTRIBUTION WIDTH 13.1 % (11.5-14.5)
[2019-08-14 23:28] LABS: WHITE BLOOD COUNT 64.5 X10'3 (4.5-11.0)
[2019-08-15] VITALS (17 sets, daily range): BP systolic 55–121; BP diastolic 27–77
[2019-08-15] MEDS: piperacillin/tazo 3.375gm/50ml 50 ML IV SCH ×2 (00:46→07:06)
[2019-08-15] MEDS: acetaminophen 325mg tablet PO PRN (00:46)
[2019-08-15] MEDS ORDERED: vancomycin/NS 1 GM ADD-VANTAGE 250 ML IV SCH (02:00)
[2019-08-15 02:25] LABS: ABG BASE EXCESS -18.5 mmol/L (-2.0-3.0); ABG HCO3 7.6 mmol/L (22.0-26.0); ABG OXYGEN SATURATION 97.4 % (95-98); ABG PCO2 (T) 22.1 mmHg (35.0-45.0); ABG PH (T) 7.159 (7.350-7.450); ABG PO2 (T) 123.5 mmHg (83-108); ALLEN'S TEST Positive; FCOHb 0.3 % (0.5-1.5); FMetHb 0.5 % (0.3-1.12); FO2Hb 96.6 % (94-100); MINUTE VOLUME 13 L/min; PATIENT TEMPERATURE 38.2; PEEP 5 cm H2O; RESPIRATORY RATE 12 b/min; TIDAL VOLUME 500 mL; TOTAL HEMOGLOBIN 18.3 G/dl (12.0-16.0)
[2019-08-15] MEDS ORDERED: sodium bicarbonate (8.4%) inj. 50 MEQ in normal saline 1000ml 1,000 ML IV SCH (02:30)
--- NOTE | 2019-08-15 02:30 | NUR ---
at 0130 pt BP was 86/58. at 0145, the monitor was unable to read BP. levo was at 6mcg/min at this time. in addition, end tidal CO2 decreased from around 18-22 down to 14-15. we called respiratory to assess a ABG. we tried different BP cuffs and locations, and used a doppler and manual cuff. we were able to get a BP reading in either arm. a femoral pulse was present, but radial and brachial were thready. ABG showed pH of 7.15. Levophed was increased step-anne from 6 up to 20 mcg/min. still no BP reading. Osmin Vaughn was notified and gave orders for 1000ml NS bolus, and 1amp of Bicarb, IV push. after the bicarb was given pt regained a BP of 107/59 at 0230.
[2019-08-15] MEDS ORDERED: sodium bicarbonate (8.4%) inj. 1 MEQ/ML ML ONE ×4 (02:33→13:30)
[2019-08-15] MEDS ORDERED: sodium bicarbonate (8.4%) inj. 1 MEQ/ML ML IV ONE ×4 (02:45→06:10)
[2019-08-15 02:51] LABS: ALANINE AMINOTRANSFERASE 31 U/L (12-78); ALBUMIN 1.1 G/DL (3.4-5.0); ALBUMIN/GLOBULIN RATIO 0.6 (1.1-1.5); ALKALINE PHOSPHATASE 90 IU/L (46-116); ANION GAP 11 (8-16); ASPARTATE AMINO TRANSFERASE 149 U/L (10-37); BILIRUBIN,TOTAL 0.7 MG/DL (0.1-1.0); BLOOD UREA NITROGEN 28 MG/DL (7-18); BUN/CREATININE RATIO 18.3 (6.6-38.0); CALCIUM 6.4 MG/DL (8.5-10.1); CHLORIDE 109 MMOL/L (99-107); CREATININE 1.53 MG/DL (0.40-0.90); GLUCOSE 102 MG/DL (70-104); MAGNESIUM 3.6 MG/DL (1.5-2.4); PHOSPHORUS 6.8 MG/DL (2.3-4.5); POTASSIUM 5.3 MMOL/L (3.5-5.1); SODIUM 133 MMOL/L (135-145); eGFR 41 ML/MIN
[2019-08-15 03:01] LABS: TOTAL CARBON DIOXIDE 13.4 MMOL/L (24-32)
[2019-08-15] MEDS: normal saline 1000ml 1,000 ML IV SCH (03:08)
--- NOTE | 2019-08-15 03:15 | NUR ---
I called Osmin Vaughn again around 314 to report critical Co2 of 13, and WBC of 64. He is aware. Osmin gave orders to add on a LA and a procalcitonin onto AM labs. in addition he gave orders for 1g Calcium chloride, 1mp bicarb, and 500ml of 5% albumin. at 0335 pt BP dipped to as low as 67/41 at 0335, but did not lose BP readings during this time.
[2019-08-15] MEDS ORDERED: normal saline 1000ml 1,000 ML IVB ONE (03:17)
[2019-08-15] MEDS ORDERED: albumin (Human) 5% 250ml 250 ML IV ONE ×2 (03:20)
[2019-08-15] MEDS ORDERED: calcium chloride inj. 1,000 MG in normal saline 100ml IV soln 90 ML IV ONE (03:20)
[2019-08-15] MEDS ORDERED: NORepinephrine 8mg/ 250ml NS 250 ML IV ONE (04:43)
[2019-08-15] MEDS ORDERED: NORepinephrine 8mg/ 250ml NS 250 ML IV PRN (04:44)
[2019-08-15 04:56] LABS: MEAN CORPUSCULAR HGB CONC 33.1 g/dL (33.0-36.5)
[2019-08-15 04:59] LABS: BASOPHILS # (AUTO) 0.1 X10'3 (0-0.2); BASOPHILS % (AUTO) 0.1 % (0-1); EOSINOPHILS # (AUTO) 0.6 X10'3 (0-0.9); EOSINOPHILS % (AUTO) 0.7 % (0-6); HEMATOCRIT 46.2 % (35.0-45.0); HEMOGLOBIN 15.3 g/dl (12.0-16.0); LYMPHOCYTES # (AUTO) 5.6 X10'3 (1.1-4.8); LYMPHOCYTES % (AUTO) 6.6 % (21-51); MEAN CORPUSCULAR HEMOGLOBIN 30.5 PG (27.0-31.0); MEAN CORPUSCULAR VOLUME 92.3 FL (78-98); MEAN PLATELET VOLUME 6.9 FL (7.4-10.4); MONOCYTES # (AUTO) 7.8 X10'3 (0-0.9); MONOCYTES % (AUTO) 9.3 % (2-12); NEUTROPHILS # (AUTO) 70.5 X10'3 (1.8-7.7); NEUTROPHILS % (AUTO) 83.3 % (42-75); PLATELET COUNT 118 X10'3 (140-440); RED CELL DISTRIBUTION WIDTH 13.4 % (11.5-14.5)
[2019-08-15 05:02] LABS: WHITE BLOOD COUNT 84.6 X10'3 (4.5-11.0)
[2019-08-15] MEDS: midazolam 100mg in NS 100ml 100 ML IV PRN (05:05)
[2019-08-15] MEDS: FENTANYL-0.9 % NACL/PF 100 ML IV PRN (05:06)
--- NOTE | 2019-08-15 05:15 | NUR ---
at 0515, pt BP started to decreased again, i spoke with Osmin Vaughn at that time. he gave order for 1 amp bicarb and a 500ml bolus. in addition he ordered a bmp lab draw along with repeat LA. ordered entered. continue plan of care.
[2019-08-15] MEDS ORDERED: sodium bicarbonate (8.4%) 1 mEq/ml syringe IV ONE ×4 (05:25→13:35)
[2019-08-15] MEDS ORDERED: normal saline 500ml IV soln 500 ML IV ONE (05:35)
[2019-08-15 05:39] LABS: ALBUMIN 1.5 G/DL (3.4-5.0); ANION GAP 16 (8-16); BLOOD UREA NITROGEN 30 MG/DL (7-18); CALCIUM 6.3 MG/DL (8.5-10.1); CHLORIDE 110 MMOL/L (99-107); GLUCOSE 88 MG/DL (70-104); POTASSIUM 5.2 MMOL/L (3.5-5.1); SODIUM 137 MMOL/L (135-145)
[2019-08-15 05:57] LABS: BUN/CREATININE RATIO 16.8 (6.6-38.0); CREATININE 1.79 MG/DL (0.40-0.90); eGFR 34 ML/MIN
[2019-08-15 05:58] LABS: TOTAL CARBON DIOXIDE 11.5 MMOL/L (24-32)
--- NOTE | 2019-08-15 06:00 | NUR ---
at 0550 BP was 96/62. at 0555, pt BP was lost again. i called Osmin and gave him critical results of LA 6.2 and Co2 of 11. he is aware. he gave orders for 1 additional amp of bicarb IV push, and then to start bicarb drip with 3amps in D5W. orders entered.
--- NOTE | 2019-08-15 06:15 | NUR ---
Patient in room CICU 2014. I have received report from MIXING ENGINEER and had the opportunity to ask questions and assume patient care.
--- NOTE | 2019-08-15 06:30 | NUR ---
Problems reprioritized. Patient report given, questions answered & plan of care reviewed with Bea DELUCA.
[2019-08-15] MEDS ORDERED: vasopressin inj. 20 UNIT in normal saline 100ml IV soln 39 ML IV SCH (06:45)
[2019-08-15] MEDS ORDERED: hydrocortisone sod succ/PF 250mg/2ml inj. IV ONE (06:45)
--- NOTE | 2019-08-15 07:00 | NUR ---
STARTED VASOPRESSIN NO CHANGE IN BLOOD PRESSURE
--- NOTE | 2019-08-15 07:00 | NUR ---
ABLE TO GET SBP BY APARNA CUFF WITH DOPPLER DR OWENS NOTIFIED ORDERS RECEIVED
[2019-08-15] MEDS: sodium bicarbonate (8.4%) inj. 75 MEQ in dextrose 5% water 500ml 500 ML IV SCH ×2 (07:06→11:18)
[2019-08-15] MEDS: CLINDAMYCIN/D5W 900mg/50ml 50 ML IV SCH (07:06)
[2019-08-15 07:19] LABS: PLATELET ESTIMATE DECREASED; TOTAL CELLS COUNTED 100
[2019-08-15] MEDS ORDERED: calcium chloride 100 MG/1 ML inj IV ONE (07:30)
[2019-08-15] MEDS ORDERED: albumin (human) 25% 100 ML IV solution IV ONE ×2 (07:35→11:15)
[2019-08-15] MEDS ORDERED: albumin (human) 25% 100ml IV 100 ML IV ONE (07:37)
[2019-08-15] MEDS: pantoprazole 40 MG vial IV SCH (08:00)
[2019-08-15] MEDS: lactobacillus rhamnosus 10,000 MMU CELLS/CAPSULE PO SCH (08:00)
[2019-08-15] MEDS ORDERED: calcium chloride inj. 1,000 MG in normal saline 100ml IV soln 100 ML IV ONE (08:00)
[2019-08-15] MEDS ORDERED: epiNEPHrine inj 5 MG, calcium chloride inj. 1,000 MG in normal saline 250ml IV soln 235 ML IV PRN (09:00)
--- NOTE | 2019-08-15 09:00 | NUR ---
EPICAL STARTED WITH NO CHANGE IN BLOOD PRESSURE,
[2019-08-15 09:15] LABS: HIV ANTIBODY 1&2 RAPID NON-REACTIVE (Neg)
--- NOTE | 2019-08-15 09:30 | NUR ---
Dr Mauricio here to start arterial line unable to do. Dr Sears here took dressing down to surg site redressed.
[2019-08-15] MEDS ORDERED: hydrocortisone sod succ/PF 100mg/2ml inj. IV ONE (09:35)
[2019-08-15 10:06] LABS: ABG BASE EXCESS -27.7 mmol/L (-2.0-3.0); ABG HCO3 7.3 mmol/L (22.0-26.0); ABG OXYGEN SATURATION 20.1 % (95-98); ABG PCO2 (T) 49.1 mmHg (35.0-45.0); ABG PH (T) 6.782 (7.350-7.450); ABG PO2 (T) < 28.0 mmHg (83-108); FCOHb 0.3 % (0.5-1.5); FO2Hb 19.6 % (94-100); PATIENT TEMPERATURE 36.3; TOTAL HEMOGLOBIN 12.8 G/dl (12.0-16.0)
[2019-08-15 11:36] LABS: ABG BASE EXCESS -23.8 mmol/L (-2.0-3.0); ABG HCO3 9.2 mmol/L (22.0-26.0); ABG PCO2 (T) 47.6 mmHg (35.0-45.0); ABG PH (T) 6.893 (7.350-7.450); ABG PO2 (T) < 28.0 mmHg (83-108); FCOHb 0.3 % (0.5-1.5); FMetHb 2.2 % (0.3-1.12); FO2Hb 14.6 % (94-100); MINUTE VOLUME 10 L/min; PATIENT TEMPERATURE 35.5; PEEP 5 cm H2O; RESPIRATORY RATE 12 b/min; RESPIRATORY RATE (OBSERVED) 24 b/min; TIDAL VOLUME 500 mL; TOTAL HEMOGLOBIN 11.8 G/dl (12.0-16.0)
[2019-08-15 11:40] LABS: OXYGEN SATURATION (MIXED VEN) 18.1 % (60-80); PO2 MIXED VENOUS (TEMP COR) 17.6 mmHg (35-46)
[2019-08-15] MEDS ORDERED: sod chloride 0.9% 10ml flush syringe IV ONE (12:00)
[2019-08-15] MEDS ORDERED: epiNEPHrine 0.1mg/ml 10ml syringe ONE (12:00)
[2019-08-15] MEDS ORDERED: bicarb dialysis sol 2K+/3 Ca2+ 5,000 ML HE SCH (12:11)
[2019-08-15] MEDS ORDERED: calcium chloride inj. 1,000 MG in normal saline 100ml IV soln 100 ML IV PRN (12:15)
[2019-08-15] MEDS ORDERED: magnesium 4gm in 100ml NS 100 ML IV PRN (12:15)
[2019-08-15] MEDS ORDERED: potassium Cl 20mEq/100mL bag 100 ML IV PRN (12:15)
[2019-08-15] MEDS ORDERED: sodium phosphate inj. 30 MMOL in normal saline 250ml IV soln 250 ML IV PRN (12:15)
[2019-08-15 12:29] LABS: HEMOGLOBIN 11.4 g/dl (12.0-16.0); RED CELL DISTRIBUTION WIDTH 13.4 % (11.5-14.5)
[2019-08-15] MEDS ORDERED: heparin 1,000unit/ml 10ml vial 10 ML ONE (12:29)
[2019-08-15 12:34] LABS: HEMATOCRIT 36.1 % (35.0-45.0); MEAN CORPUSCULAR HEMOGLOBIN 30.7 PG (27.0-31.0); MEAN CORPUSCULAR HGB CONC 31.5 g/dL (33.0-36.5); MEAN CORPUSCULAR VOLUME 97.3 FL (78-98); MEAN PLATELET VOLUME 8.5 FL (7.4-10.4); PLATELET COUNT 65 X10'3 (140-440); RED BLOOD COUNT 3.71 X10'6 (4.20-5.60)
[2019-08-15 12:46] LABS: ALBUMIN 1.6 G/DL (3.4-5.0); ALBUMIN/GLOBULIN RATIO 2.3 (1.1-1.5); ALKALINE PHOSPHATASE 138 IU/L (46-116); ANION GAP 21 (8-16); BILIRUBIN,TOTAL 0.9 MG/DL (0.1-1.0); BLOOD UREA NITROGEN 31 MG/DL (7-18); BUN/CREATININE RATIO 13.1 (6.6-38.0); CALCIUM 7.3 MG/DL (8.5-10.1); CHLORIDE 112 MMOL/L (99-107); CREATININE 2.37 MG/DL (0.40-0.90); GLUCOSE 79 MG/DL (70-104); LIPASE 132 U/L (73-393); POTASSIUM 5.9 MMOL/L (3.5-5.1); SODIUM 145 MMOL/L (135-145); TOTAL PROTEIN 2.3 G/DL (6.4-8.2); eGFR 25 ML/MIN
[2019-08-15 12:49] LABS: WHITE BLOOD COUNT 106.8 X10'3 (4.5-11.0)
--- NOTE | 2019-08-15 12:50 | NUR ---
IR here to place art line and burt.
[2019-08-15 12:51] LABS: ABG BASE EXCESS -19.9 mmol/L (-2.0-3.0); ABG HCO3 7.5 mmol/L (22.0-26.0); ABG OXYGEN SATURATION 94.8 % (95-98); ABG PCO2 (T) 20.8 mmHg (35.0-45.0); ABG PH (T) 7.163 (7.350-7.450); ABG PO2 (T) 81.6 mmHg (83-108); FCOHb 0.2 % (0.5-1.5); FMetHb 0.1 % (0.3-1.12); FO2Hb 94.5 % (94-100); MINUTE VOLUME 12 L/min; PATIENT TEMPERATURE 34.9; PEEP 5 cm H2O; RESPIRATORY RATE 12 b/min; RESPIRATORY RATE (OBSERVED) 27 b/min; TIDAL VOLUME 500 mL; TOTAL HEMOGLOBIN 10.7 G/dl (12.0-16.0)
--- NOTE | 2019-08-15 12:54 | NUR ---
IR team called in to put emergent temp dialysis catheter and art line in patient. IR Team, ICU Nurse and Dr Aguirre to patient bedside in ICU and placed 5f art line to right groin and 15cm schoon temp TDC to RIJ with no complications
[2019-08-15 13:01] LABS: ALANINE AMINOTRANSFERASE 1451 U/L (12-78); ASPARTATE AMINO TRANSFERASE 3658 U/L (10-37)
[2019-08-15 13:29] LABS: TOTAL CARBON DIOXIDE 12.2 MMOL/L (24-32)
--- NOTE | 2019-08-15 13:53 | NUR ---
patient joanna and blood pressure dropped code blue called
[2019-08-15 13:57] LABS: TOTAL CELLS COUNTED 100
[2019-08-15] MEDS ORDERED: atropine 0.1mg/ml 10ml syringe ONE (13:59)
[2019-08-15 14:00] LABS: PLATELET ESTIMATE DECREASED
[2019-08-15 14:01] LABS: POLYCHROMASIA 1+
[2019-08-15 14:02] LABS: ACANTHOCYTES FEW; SCHISTOCYTES FEW
[2019-08-15 14:21] LABS: ABG BASE EXCESS -6.4 mmol/L (-2.0-3.0); ABG HCO3 20.9 mmol/L (22.0-26.0); ABG OXYGEN SATURATION 66.5 % (95-98); ABG PCO2 (T) 51.2 mmHg (35.0-45.0); ABG PH (T) 7.229 (7.350-7.450); ABG PO2 (T) 41.6 mmHg (83-108); FCOHb 0.3 % (0.5-1.5); FLOW 15 L/min; FMetHb 0.1 % (0.3-1.12); FO2Hb 66.2 % (94-100); TOTAL HEMOGLOBIN 8.4 G/dl (12.0-16.0)
--- NOTE | 2019-08-15 14:25 | NUR ---
Initial: Pt admit with necrotizing fasciitis with hx IVDA. Pt s/p I&D on 08/14 and now receiving CVVH and s/p TDC placement 08/15. Pt remains intubated at this time and requires increased protein needs r/t necrotizing fasciitis and CVVH. Recommendations below for if pt to receive nutrition support. Will continue to follow. Recommendations: 1) If prolonged intubation and to receive TF, continuous Vital AF with goal rate of 65 mL/hr to meet increased nutrient needs 2) IF TF, prealbumin q /; daily weights 3) Diet advancement to regular as medically indicated following extubation Addendum: 08/15/19 at [address] Amended: Links added.
[2019-08-15 14:34] LABS: HEMOGLOBIN 8.2 g/dl (12.0-16.0); MEAN CORPUSCULAR HEMOGLOBIN 30.3 PG (27.0-31.0); MEAN CORPUSCULAR HGB CONC 32.5 g/dL (33.0-36.5); RED BLOOD COUNT 2.72 X10'6 (4.20-5.60)
[2019-08-15 14:37] LABS: BASOPHILS # (AUTO) 0.3 X10'3 (0-0.2); BASOPHILS % (AUTO) 0.4 % (0-1); EOSINOPHILS # (AUTO) 1.9 X10'3 (0-0.9); EOSINOPHILS % (AUTO) 2.3 % (0-6); HEMATOCRIT 25.3 % (35.0-45.0); LYMPHOCYTES # (AUTO) 13.7 X10'3 (1.1-4.8); LYMPHOCYTES % (AUTO) 17.3 % (21-51); MEAN CORPUSCULAR VOLUME 93.1 FL (78-98); MEAN PLATELET VOLUME 8.1 FL (7.4-10.4); MONOCYTES # (AUTO) 5.3 X10'3 (0-0.9); MONOCYTES % (AUTO) 6.7 % (2-12); NEUTROPHILS # (AUTO) 57.8 X10'3 (1.8-7.7); NEUTROPHILS % (AUTO) 73.3 % (42-75); PLATELET COUNT 78 X10'3 (140-440); RED CELL DISTRIBUTION WIDTH 13.2 % (11.5-14.5)
[2019-08-15 14:42] LABS: WHITE BLOOD COUNT 78.9 X10'3 (4.5-11.0)
[2019-08-15 14:44] LABS: ALANINE AMINOTRANSFERASE 3332 U/L (12-78); ALBUMIN 0.8 G/DL (3.4-5.0); ALBUMIN/GLOBULIN RATIO 0.7 (1.1-1.5); ALKALINE PHOSPHATASE 149 IU/L (46-116); ANION GAP 11 (8-16); BILIRUBIN,TOTAL 0.7 MG/DL (0.1-1.0); BLOOD UREA NITROGEN 25 MG/DL (7-18); BUN/CREATININE RATIO 15.4 (6.6-38.0); CHLORIDE 122 MMOL/L (99-107); CREATININE 1.62 MG/DL (0.40-0.90); GLUCOSE 102 MG/DL (70-104); TOTAL CARBON DIOXIDE 26.7 MMOL/L (24-32); eGFR 38 ML/MIN
[2019-08-15] MEDS ORDERED: morphine 10mg/ml inj. IV PRN (14:45)
[2019-08-15] MEDS ORDERED: LORazepam 2 mg/ml vial IV PRN (14:45)
[2019-08-15 14:47] LABS: CALCIUM 15.6 MG/DL (8.5-10.1); SODIUM 160 MMOL/L (135-145)
[2019-08-15 14:50] LABS: PARTIAL THROMBOPLASTIN TIME > 139 SECONDS (22-32)
--- NOTE | 2019-08-15 14:52 | NUR ---
code called patient pronounced by Dr Mauricio
[2019-08-15 15:08] LABS: ASPARTATE AMINO TRANSFERASE > 7000 U/L (10-37); TOTAL PROTEIN < 2.0 G/DL (6.4-8.2)
--- NOTE | 2019-08-15 15:14 | NUR ---
Noted that patient's code status has been made DNR with comfort care. Will continue to follow per LOS protocol. Recommendations: 1) Bowel care per comfort care measures Addendum: 08/15/19 at [address] Amended: Links added.
[2019-08-15 17:01] LABS: ISTAT CREATININE 1.8 mg/dL (0.6-1.1); ISTAT HGB 6.1 g/dl (12.0-16.0); ISTAT IONIZED CALCIUM 2.07 mmol/L (1.03-1.32); ISTAT K 5.3 mmol/L (3.5-5.1); POC BUN/CREATININE RATIO 14.4 (6.6-38.0)
[2019-08-16 13:32] LABS: HBSAG SCREEN Negative (Negative); HEP A AB, IGM Negative (Negative); HEP B CORE AB, IGM Negative (Negative); HEPATITIS C ANTIBODY >11.0 s/co ratio (0.0-0.9)
[2019-08-17] MEDS ORDERED: VANCOMYCIN LEVEL IV ONE (01:30)
== END 2019-08-15 18:04 | disposition expired | DRG 720 ==
LOC: ER 22:26 → CICU 2S 08-14 04:35
PROVIDERS: ADMIT Internal Medicine Critical Care Medicine
PROC: 0H98XZZ Drainage of Buttock Skin, External Approach (ICD-10-PCS; principal; 2019-08-13)
PROC: 5A1945Z Respiratory Ventilation, 24-96 Consecutive Hours (ICD-10-PCS; 2019-08-14)
PROC: 0JBL0ZZ Excision of Right Upper Leg Subcutaneous Tissue and Fascia, Open Approach (ICD-10-PCS; 2019-08-14)
PROC: 0BH17EZ Insertion of Endotracheal Airway into Trachea, Via Natural or Artificial Opening (ICD-10-PCS; 2019-08-14)
PROC: 5A12012 Performance of Cardiac Output, Single, Manual (ICD-10-PCS; 2019-08-15)
PROC: 04HY32Z Insertion of Monitoring Device into Lower Artery, Percutaneous Approach (ICD-10-PCS; 2019-08-15)
PROC: 05HM33Z Insertion of Infusion Device into Right Internal Jugular Vein, Percutaneous Approach (ICD-10-PCS; 2019-08-15)
PROC: B543ZZA Ultrasonography of Right Jugular Veins, Guidance (ICD-10-PCS; 2019-08-15)
PROC: 5A1D90Z Performance of Urinary Filtration, Continuous, Greater than 18 hours Per Day (ICD-10-PCS; 2019-08-15)
DX: A41.9 Sepsis, unspecified organism (principal); J96.00 Acute respiratory failure, unspecified whether with hypoxia or hypercapnia; I46.9 Cardiac arrest, cause unspecified; K72.00 Acute and subacute hepatic failure without coma; M72.6 Necrotizing fasciitis; E87.2 Acidosis; D68.9 Coagulation defect, unspecified; R57.9 Shock, unspecified; R65.21 Severe sepsis with septic shock; N17.9 Acute kidney failure, unspecified; F11.20 Opioid dependence, uncomplicated; D72.823 Leukemoid reaction; F15.90 Other stimulant use, unspecified, uncomplicated; Z51.5 Encounter for palliative care; F17.210 Nicotine dependence, cigarettes, uncomplicated; L02.31 Cutaneous abscess of buttock; L03.115 Cellulitis of right lower limb; L03.317 Cellulitis of buttock; Z79.899 Other long term (current) drug therapy; Z88.8 Allergy status to other drugs, medicaments and biological substances
CPT/HCPCS: 10060; 36245; 36415; 36556; 36600; 71045; 73701; 76937; 80047; 80048; 80053; 80074; 81001; 81025; 82310; 82330; 82550; 82803; 82810; 82948; 83605; 83690; 83735; 84100; 84132; 84145; 85018; 85025; 85384; 85610; 85730; 86703; 86885; 86900; 86901; 87040; 87070; 87075; 87076; 87077; 87081; 92950; 93005; 93306; 94002; 94003; 94640; 94760; 96365; 96368; 96375; 99291; A4338; A4618; A6253; A6446; A7000; C1751; C1894; C9113; E1594; G0378; J0171; J0461; J0690; J1580; J1644; J1720; J2001; J2250; J2270; J2370; J2540; J2543; J2704; J2710; J3010; J3370; J3475; J3490; J7040; J7050; J7120; P9045; P9047; Q9967